=== PATIENT | female | born 1995 | race American Indian/Alaskan Native ===

== ENCOUNTER 2020-06-11 17:51 | Emergency (ER) | payer OTHER ==
[2020-06-11 17:56] VITALS: BP 122/68
[2020-06-11 18:42] LABS: Basophils % (Auto) 0.6 % (0.0-1.8); Eosinophils # (Auto) 0.1 K/mm3 (0.0-0.4); Eosinophils % (Auto) 2.2 % (0.0-4.3); Hematocrit 40.1 % (30.3-42.9); Hemoglobin 13.3 gm/dl (10.1-14.3); Lymphocytes # (Auto) 2.2 K/mm3 (1.2-5.4); Lymphocytes % (Auto) 35.4 % (13.4-35.0); Mean Corpuscular HGB Conc 33 % (30-34); Mean Corpuscular Volume 92 fl (79-97); Monocytes # (Auto) 0.3 K/mm3 (0.0-0.8); Monocytes % (Auto) 4.4 % (0.0-7.3); Platelet Count 204 K/mm3 (140-440); Red Blood Count 4.37 M/mm3 (3.65-5.03)
[2020-06-11 19:02] LABS: Alanine Aminotransferase 16 units/L (7-56); Albumin 4.3 g/dL (3.9-5); Blood Urea Nitrogen 12 mg/dL (7-17); Calcium 9.9 mg/dL (8.4-10.2); Hemolysis Index 5
[2020-06-11 19:03] LABS: BUN/Creatinine Ratio 20
[2020-06-11 19:12] LABS: HCG Qualitative,Urine Negative (Negative)
[2020-06-11 19:18] LABS: Bilirubin,Urine NEG (Negative); Blood,Urine SM (Negative); Color,Urine Yellow (Yellow); Mucus,Urine FEW /HPF; Protein,Urine <15 mg/dL mg/dL (Negative); Urobilinogen,Urine < 2.0 mg/dL (<2.0)
[2020-06-11] MEDS ORDERED: KETOROLAC 30 MG/1 ML INJ IV ONE (20:26)
[2020-06-11] MEDS ORDERED: ONDANSETRON 4 MG/2 ML INJ IV ONE (20:27)
--- NOTE | 2020-06-11 22:22 | Cat Scan Report ---
CT ABDOMEN AND PELVIS WITH CONTRAST INDICATION / CLINICAL INFORMATION: Patient complains of Mid-abd pain with nausea and diarrhea. TECHNIQUE: Axial CT images were obtained through the abdomen and pelvis after 100 cc Omnipaque [address] scans at this location are performed using CT dose reduction for ALARA by means of automated exposure control. COMPARISON: None available. FINDINGS: LOWER CHEST: No significant abnormality. LIVER: No significant abnormality. GALLBLADDER: No significant abnormality. BILE DUCTS: No significant abnormality. PANCREAS: No significant abnormality. SPLEEN: No significant abnormality. ADRENALS: No significant abnormality. RIGHT KIDNEY / URETER: No significant abnormality. LEFT KIDNEY / URETER: No significant abnormality. STOMACH / SMALL BOWEL: Slightly prominent gastric mucosa. Small bowel is unremarkable. COLON: No significant abnormality. APPENDIX: No significant abnormality. PERITONEUM: No free fluid. No free air. No fluid collection. LYMPH NODES: There are minimally prominent lymph nodes seen throughout the abdomen and pelvis. No pat hologic enlargement. AORTA / ARTERIES: No significant abnormality. IVC / VEINS: No significant abnormality. URINARY BLADDER: No significant abnormality. REPRODUCTIVE ORGANS: Small bilateral ovarian cysts. ADDITIONAL FINDINGS: None. SKELETAL SYSTEM: Chronic healed right anterolateral rib fracture. IMPRESSION: 1. Mildly prominent gastric mucosa with lymph node prominence throughout the abdomen. Findings could reflect a mild gastroenteritis in the right clinical setting. Signer Name: Klever Jalloh MD Signed: 06/11/2020 10:17 PM Workstation Name: [id number]
--- NOTE | 2020-06-11 22:39 | Emergency Department Report ---
ED Abdominal Pain HPI - General Chief Complaint: Abdominal Pain Stated Complaint: BACK PAIN Source: patient Mode of arrival: Ambulatory Limitations: No Limitations - History of Present Illness Initial Comments: Patient is a A0 25-year-old -[place] female with no past medical history presents to the ED with persistent diffuse lower abdominal pain intermittently for the last 3 months but worse in the last 1 week. Patient states that in the last 1 week or so the pain has been more severe and more constant. Patient states that she was diagnosed with chlamydia infection 3 months ago after having unprotected sexual intercourse with her baby daddy from home she had , but never got treated for it because she did not have health insurance. Patient states that the pain has been persistent and worsening especially in the last 2 days. Patient denies dizziness, syncope, nausea, vomiting, chest pain, shortness of breath, vaginal bleeding, vaginal discharge, dysuria, urinary frequency and urgency, headache, dyspareunia, change in vision, sore throat and fever or chills. MD Complaint: abdominal pain (Diffuse lower abdomen), other (diagnosed with chlamydia 3 months ago but never got treated) -: Gradual, month(s) (3) Location: suprapubic Radiation: back (Low back) Migration to: suprapubic Severity scale (0 -10): 5 Quality: cramping, aching, sharp Consistency: constant Improves With: nothing Worsens With: movement Context: other (diagnosed with chlamydia 3 months ago but never got treated) Associated Symptoms: denies other symptoms, nausea. denies: vomiting, diarrhea, fever, chills, constipation, dysuria, hematemesis, melena, hematuria, anorexia, syncope - Related Data LMP Date: 06/03/20 Previous Rx's Medication Instructions Recorded Last Taken Type DOXYCYCLINE Hyclate [Vibramycin 100 mg PO Q12HR #20 capsule 06/12/20 Unknown Rx CAP] Fluconazole (Nf) [Diflucan TAB] 150 mg PO ONCE #2 tablet 06/12/20 Unknown Rx Ibuprofen [Motrin] 800 mg PO Q8HR PRN #30 tablet 06/12/20 Unknown Rx Ondansetron [Zofran Odt] 4 mg PO Q6HR PRN #15 tab.rapdis 06/12/20 Unknown Rx metroNIDAZOLE [Flagyl] 500 mg PO Q12HR #14 tab 06/12/20 Unknown Rx Allergies Allergy/AdvReac Type Severity Reaction Status Date / Time No Known Allergies Allergy Unverified 06/11/20 17:53 ED Review of Systems ROS: Stated complaint: BACK PAIN Other details as noted in HPI Constitutional: denies: chills, fever Eyes: denies: eye pain, eye discharge, vision change ENT: denies: ear pain, throat pain Respiratory: denies: cough, shortness of breath, wheezing Cardiovascular: denies: chest pain, palpitations Endocrine: no symptoms reported Gastrointestinal: abdominal pain (Lower abdominal pain), nausea. denies: diarrhea Genitourinary: dyspareunia, other (Suprapubic pain). denies: urgency, dysuria, discharge Musculoskeletal: back pain (Low back pain). denies: joint swelling, arthralgia Skin: denies: rash, lesions Neurological: denies: headache, weakness, paresthesias Psychiatric: denies: anxiety, depression Hematological/Lymphatic: denies: easy bleeding, easy bruising ED Past Medical Hx - Past Medical History Previous Medical History?: No - Surgical History Past Surgical History?: No - Social History Smoking Status: Never Smoker Substance Use Type: None - Medications Home Medications: Home Medications Medication Instructions Recorded Confirmed Last Taken Type DOXYCYCLINE Hyclate [Vibramycin 100 mg PO Q12HR #20 capsule 06/12/20 Unknown Rx CAP] Fluconazole (Nf) [Diflucan TAB] 150 mg PO ONCE #2 tablet 06/12/20 Unknown Rx Ibuprofen [Motrin] 800 mg PO Q8HR PRN #30 tablet 06/12/20 Unknown Rx Ondansetron [Zofran Odt] 4 mg PO Q6HR PRN #15 tab.rapdis 06/12/20 Unknown Rx metroNIDAZOLE [Flagyl] 500 mg PO Q12HR #14 tab 06/12/20 Unknown Rx ED Physical Exam - General Limitations: No Limitations General appearance: alert, in no apparent distress - Head Head exam: Present: atraumatic, normocephalic, normal inspection - Eye Eye exam: Present: normal appearance, PERRL, EOMI Pupils: Present: normal accommodation - ENT ENT exam: Present: normal exam, normal orophraynx, mucous membranes moist, TM's normal bilaterally, normal external ear exam - Neck Neck exam: Present: normal inspection, full ROM - Respiratory Respiratory exam: Present: normal lung sounds bilaterally. Absent: respiratory distress, wheezes, rales, rhonchi, stridor, chest wall tenderness, accessory muscle use, decreased breath sounds, prolonged expiratory - Cardiovascular Cardiovascular Exam: Present: regular rate, normal rhythm, normal heart sounds. Absent: systolic murmur, diastolic murmur, rubs, gallop - GI/Abdominal GI/Abdominal exam: Present: soft, tenderness (Palpable moderate suprapubic tenderness no guarding or rebound), normal bowel sounds. 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 Lewis present) - Extremities Exam Extremities exam: Present: normal inspection, full ROM, normal capillary refill - Back Exam Back exam: Present: normal inspection, full ROM. Absent: tenderness, CVA tenderness (R), CVA tenderness (L), muscle spasm, paraspinal tenderness, vertebral tenderness - Neurological Exam Neurological exam: Present: alert, oriented X3, CN II-XII intact, normal gait, reflexes normal - Psychiatric Psychiatric exam: Present: normal affect, normal mood - Skin Skin exam: Present: warm, dry, intact, normal color. Absent: rash ED Course Vital Signs 06/11/20 17:55 Temperature 97.8 F Pulse Rate 63 Respiratory 16 Rate Blood Pressure 122/68 [Right] O2 Sat by Pulse 96 Oximetry ED Medical Decision Making - Lab Data Result diagrams: 06/11/20 18:31 06/11/20 18:31 - Radiology Data Radiology results: report reviewed, image reviewed Findings [facility] [address] [place] [address] Cat Scan Report Signed Patient: AGUS DIOR MR#: [id number] : 1995 Acct:[id number] Age/Sex: 25 / F ADM Date: 06/11/20 Loc: ED Attending Dr: Ordering Physician: JEAN SEQUEIRA Date of Service: 06/11/20 Procedure(s): CT abdomen pelvis w con Accession Number(s): [id number] cc: JEAN SEQUEIRA CT ABDOMEN AND PELVIS WITH CONTRAST INDICATION / CLINICAL INFORMATION: Patient complains of Mid-abd pain with nausea and diarrhea. TECHNIQUE: Axial CT images were obtained through the abdomen and pelvis after 100 cc Omnipaque [address] scans at this location are performed using CT dose reduction for ALARA by means of automated exposure control. COMPARISON: None available. FINDINGS: LOWER CHEST: No significant abnormality. LIVER: No significant abnormality. GALLBLADDER: No significant abnormality. BILE DUCTS: No significant abnormality. PANCREAS: No significant abnormality. SPLEEN: No significant abnormality. ADRENALS: No significant abnormality. RIGHT KIDNEY / URETER: No significant abnormality. LEFT KIDNEY / URETER: No significant abnormality. STOMACH / SMALL BOWEL: Slightly prominent gastric mucosa. Small bowel is unremarkable. COLON: No significant abnormality. APPENDIX: No significant abnormality. PERITONEUM: No free fluid. No free air. No fluid collection. LYMPH NODES: There are minimally prominent lymph nodes seen throughout the abdomen and pelvis. No pathologic enlargement. AORTA / ARTERIES: No significant abnormality. IVC / VEINS: No significant abnormality. URINARY BLADDER: No significant abnormality. REPRODUCTIVE ORGANS: Small bilateral ovarian cysts. ADDITIONAL FINDINGS: None. SKELETAL SYSTEM: Chronic healed right anterolateral rib fracture. IMPRESSION: 1. Mildly prominent gastric mucosa with lymph node prominence throughout the abdomen. Findings could reflect a mild gastroenteritis in the right clinical setting. Signer Name: Meghann Jalloh MD Signed: 06/11/2020 10:17 PM Workstation Name: [id number] Transcribed By: SS Dictated By: MEGHANN JALLOH Electronically Authenticated By: MEGHANN JALLOH Signed Date/Time: 06/11/202216 DD/ 11 TD/TT: - Medical Decision Making This is a A0 25-year-old -[place] female with no past medical history presents to the ED with persistent diffuse lower abdominal pain intermittently for the last 3 months but worse in the last 1 week. Patient states that in the last 1 week or so the pain has been more severe and more constant. Patient states that she was diagnosed with chlamydia infection 3 months ago after having unprotected sexual intercourse with her baby daddy from home she had , but never got treated for it because she did not have health insurance. Patient states that the pain has been persistent and worsening especially in the last 2 days. In the ED, patient is alert and oriented x3 and is not in distress. Patient was treated for pain in the ED. Lab test results were reviewed and are all nonactionable except for wet prep test that was positive for Gardnerella vaginalis and Sakshi. Chlamydia and gonorrhea tests are pending. Patient was empirically treated for chlamydia and gonorrhea in the ED based on the physical exam findings of cervical motion tenderness. On reevaluation, patient's pain is well controlled medications. Jean dugan was advised to follow-up with her TECHNOLOGY RESOURCE TEACHER physician in 5 to 7 days for reevaluation or return to the ED immediately if symptoms get worse. Patient was therefore discharged home with pain medications and antibiotics. - Differential Diagnosis PID; STD; UTI; ovarian cyst; fibroids; muscle spasm; kidney stones; Critical care attestation.: If time is entered above; I have spent that time in minutes in the direct care of this critically ill patient, excluding procedure time. ED Disposition Clinical Impression: Abdominal pain in female patient, Acute pelvic inflammatory disease (PID), STD (female), Bacterial vaginosis, Vaginitis due to Sakshi Disposition: TO HOME OR SELFCARE Is pt being admited?: No Does the pt Need Aspirin: No Condition: Stable Instructions: Pelvic Inflammatory Disease (ED), Abdominal Pain (ED), Bacterial Vaginosis (ED), Vaginitis (ED), Sexually Transmitted Diseases (ED) Additional Instructions: All lab test results are unremarkable. Therefore take medications with food, drink plenty fluids and follow-up with your TECHNOLOGY RESOURCE TEACHER physician in 5 to 7 days for reevaluation. Return to the ED immediately if symptoms get worse. Ensure that you get tested at the [facility] department for other STDs like HIV or syphilis. Prescriptions: Fluconazole (Nf) [Diflucan TAB] 150 mg PO ONCE #2 tablet metroNIDAZOLE [Flagyl] 500 mg PO Q12HR #14 tab Ibuprofen [Motrin] 800 mg PO Q8HR PRN #30 tablet PRN Reason: Pain , Severe (7-10) DOXYCYCLINE Hyclate [Vibramycin CAP] 100 mg PO Q12HR #20 capsule Ondansetron [Zofran Odt] 4 mg PO Q6HR PRN #15 tab.rapdis PRN Reason: Nausea Referrals: [facility] [Provider Group] - 3-5 Days NEGRITA RUST MD [Staff Physician] - 3-5 Days Forms: STI Treatment and Prevention Time of Disposition: 22:42 Print Language: PRYDEINIG
[2020-06-11] MEDS ORDERED: AZITHROMYCIN 250 MG TAB PO ONE (23:06)
[2020-06-11] MEDS ORDERED: LIDOCAINE-MPF (1%) 10 MG/1 ML VIAL 5 ML INFILTRATI ONE (23:06)
== END 2020-06-12 00:30 | disposition home or self-care (01) ==
LOC: ED 17:51
DX: A64 Unspecified sexually transmitted disease (principal); N76.0 Acute vaginitis; N73.0 Acute parametritis and pelvic cellulitis; B37.3 Candidiasis of vulva and vagina; B96.89 Other specified bacterial agents as the cause of diseases classified elsewhere; R10.30 Lower abdominal pain, unspecified; Z79.899 Other long term (current) drug therapy
CPT/HCPCS: 36415; 74177; 80053; 81001; 81025; 85025; 87210; 87591; 96372; 96374; 96375; 99284; J0696; J1885; J2405; Q9967